=== PATIENT | female | born 1990 | race Caucasian/White ===

== ENCOUNTER 2022-02-23 21:21 | Emergency (ER) | payer SELFPAY ==
[~2022-02-23] VITALS: Ht 165.1 cm; Wt 105.0 kg
[2022-02-23 21:33] VITALS: BP 142/83
[2022-02-24] MEDS ORDERED: KETOROLAC 60MG/2ML VIAL IM ONE
[2022-02-24] MEDS ORDERED: IBUP-2029 MT (01:45)
[2022-02-24] MEDS ORDERED: LIDO700A30 TP (01:45)
== END 2022-02-24 02:30 | disposition home or self-care (01) ==
LOC: ER 21:21
DX: M25.511 Pain in right shoulder (principal); R07.89 Other chest pain; M25.562 Pain in left knee; V49.49XA Driver injured in collision with other motor vehicles in traffic accident, initial encounter; Y93.89 Activity, other specified; Y92.89 Other specified places as the place of occurrence of the external cause; Y99.8 Other external cause status
CPT/HCPCS: 71045; 73030; 73080; 73562; 81025; 96372; 99284